=== PATIENT | male | born 1970 | race Caucasian/White ===

== ENCOUNTER 2025-01-04 13:47 | Outpatient (AMB) | payer OTHER, SELFPAY ==
--- NOTE | 2025-01-04 14:18 | AM.OFFWIN_ITS ---
Intake Vital Signs 01/04/25 14:19 Weight 185 lb BP 120/84 Blood Pressure Location Lt brachial Position Sitting Pulse 102 H Pulse Source Pulse Oximeter Pulse Oximetry (%) 97 Oxygen Delivery Method Room Air Intake Visit Reasons: ACCOUNT MANAGEMENT ASSISTANT Dark spot upper back, rt side Intake Note: Patient here for dark spot on back that he just noticed last saturday and has a hx of skin cancer. Patient Tobacco Use Status: Never used Tobacco Allergies No Known Allergies Allergy (Verified 01/04/25 14:19) Do you need a note to return to daycare/school/sports/work: No HPI HPI Comments History of Present Illness Details History of Present Illness - The patient is a 54-year-old male pres enting with a suspicious skin lesion on the back, which is new. 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 - Recently observed a darker spot on the back, raising concern due to the past history of skin cancer. - Plans to have it evaluated by a dermat ologist either at their standard upcomin g appointment or sooner if deemed necessary. - Currently transitioning to a new [facility] physician, Dr Kent, with an appointment set for February 16. Physical Exam General: Cooperative, healthy appearing, comfortable, no acute distress and well developed Orientation: Patient oriented x3 Limitations: No limitations Head: Normal to inspection Ears: Hearing grossly normal bilaterally Nose: Normal External nose present Face and sinus: Normal facial exam Eyes: Appearance normal, both eyes and all related structures Neck: Normal visual inspection and Yes full ROM Respiratory: Normal respiratory effort and able to speak in complete sentences. Skin: Irregular shaped area of dark brown and light brown on right sided mid back, it is flat, not bleeding. Neuro: Patient oriented x3 Extremities: Normal to inspection [employer] [facility] [facility] Social History Patient Tobacco Use Status: Never used Tobacco Review of Systems Const All systems reviewed & are unremarkable except as noted in HPI and below Physical Exam Vital Signs: Last Vital Signs Pulse 102 H 01/04/25 14:19 BP 120/84 01/04/25 14:19 Pulse Ox 97 01/04/25 14:19 Oxygen Delivery Method Room Air 01/04/25 14:19 Assessment & Plan Assessment & Plan (1) Skin lesion of back: Code(s): L98.9 - Disorder of the skin and subcutaneous tissue, unspecified Plan: The patient presented with a suspicious skin lesion on the back and has a history of basal cell carcinoma on the face. Due to its irregular shape and color variation, I recommended a dermatology consultation to ensure proper evaluation and management. I have placed a referral to Elana Anguiano, pt's preference and previous [facility]. Patient was informed and verbally consented to the use of an ambient scribe for clinic note documentation during this visit. Orders: Referrals Dermatology Referral L98.9 - Disorder of the skin and subcutaneous tissue, unspecified Coding Level of Care Code Est Pt Level 3 (63921) Diagnoses Skin lesion of back L98.9
[2025-01-04 14:19] VITALS: BP 120/84; PULSE 102; O2SAT 97
== END 2025-01-04 15:30 | disposition home or self-care (01) ==
PROVIDERS: PCP Internal Medicine; Visit Provider Physician Assistant
DX: L98.9 Disorder of the skin and subcutaneous tissue, unspecified (principal)

== ENCOUNTER → 2025-01-04 13:47 | Outpatient (BNVA) | payer OTHER, SELFPAY | PROVIDERS: PCP Internal Medicine; Visit Provider Physician Assistant | DX: L98.9 Disorder of the skin and subcutaneous tissue, unspecified (principal); Z85.828 Personal history of other malignant neoplasm of skin | CPT/HCPCS: 99212 ==

== ENCOUNTER 2025-02-16 14:15 | Outpatient (AMB) | payer OTHER, SELFPAY ==
--- NOTE | 2025-02-16 14:16 | MHC.PC.OV ---
Vital Signs 02/16/25 14:24 Height 5 ft 6.54 in Weight 182 lb 6 oz BMI 29.0 BP 116/84 Blood Pressure Location Rt brachial Position Sitting Respiration 16 Pulse 95 Pulse Source Pulse Oximeter Temp 97.9 F Temp Source Temporal Artery Scan Pulse Oximetry (%) 97 Oxygen Delivery Method Room Air Intake Visit Reasons: Establish Care - see comments Dental Ceramist Helper Required: No Accompanied by: Self / Same As Patient Allergies No Known Allergies Allergy (Verified 02/16/25 14:17) Tobacco use date assessed: 02/16/25 Dental Screening Dental Screen Date: 02/16/25 Did you have a dental visit in the last 12 months?: Yes Did you have a dental problem in the last 6 months where you did not have access to dental care?: No Was dental information given to patient?: Patient has dentist [facility] Medical History (Updated 02/16/25 @ 14:51 by Roberto Barreto MD) Melanoma Hyperlipidemia Family History (Updated 02/16/25 @ 14:31 by SMA Sabas) Father Alzheimer dementia Mother Brain aneurysm Social History (Updated 02/16/25 @ 14:32 by SMA Sabas) Housing: House Alcohol intake: current Alcohol intake frequency: holidays/special occasions only Patient Tobacco Use Status: Never used Tobacco service: No Current occupational status: employed Cognitive needs: No Hearing needs: No Vision needs: No Questionnaire PHQ-9 Over the last 2 weeks, how often have you been bothered by any of the following problems? 1. Little interest or pleasure in doing things: not at all 2. Feeling down, depressed, or hopeless: not at all 3. Trouble falling or staying asleep, or sleeping too much: not at all 4. Feeling tired or having little energy: not at all 5. Poor appetite or overeating: not at all 6. Feeling bad about yourself - or that you are a failure or have let yourself or your family down: not at all 7. Trouble concentrating on things, such as reading the newspaper or watching television: not at all 8. Moving or speaking so slowly that other people could have noticed. Or the opposite - being so fidgety or restless that you have been moving around a lot more than usual: not at all 9. Thoughts that you would be better off or of hurting yourself in some way: not at all Total score: 0 Source: Developed by Drs. Brayan Nielson, Deepthi Emerson, Aidan Gasca and colleagues, with an educational michel from [email or web address]. Thrive Questionnaire Date Thrive assessed: 02/16/25 I am a: Patient What is your living situation today?: I have a steady place to live Within the past 12 months, did the food you bought not last and you didn't have the money to get more?: Never true Within the past 12 months, did you worry whether your food would run out before you got money to buy more?: Never true Do you have trouble paying for medicines?: No Do you have trouble getting transportation to medical appointments?: No Do you have trouble paying your heating and electricity bill?: No Do you have trouble taking care of your child, family member or friend?: No Do you have trouble with day-to-day activities such as bathing, preparing meals, shopping, managing finances, etc.?: No Are you currently unemployed and looking for a job?: No Are you interested in more education?: No Please select the resources that you would like help with: None Currently or been in a relationship where the following occur: No concerns reported THRIVE Score: 0 AUDIT C Alcohol Use Questionnaire (AUDIT-C) 1. How often do you have a drink containing alcohol?: Monthly or less 2. How many drinks containing alcohol do you have on a typical day when you are drinking?: 1 or 2 3. How often do you have six or more drinks on one occasion?: Never Total Score: 1 RODRIGO-7 AMB Questionnaire RODRIGO-7 Date RODRIGO - 7 assessed: 02/16/25 Feeling nervous, anxious, or on edge: 0 = Not at all Not being able to stop or control worryin = Not at all Worrying too much about different things: 0 = Not at all Trouble relaxin = Not at all Being so restless that it is hard to sit still: 0 = Not at all Becoming easily annoyed or irritable: 0 = Not at all Feeling afraid as if something awful might happen: 0 = Not at all Total RODRIGO-7 score (0-4 normal; 5-9 mild; 10-14 moderate; 15-21 severe): 0 Source: Developed by Drs. Brayan Nielson, Deepthi Emerson, Aidan Gasca and colleagues, with an educational michel from [email or web address]. Physical exam (Primary Care) Vital Signs: Last Vital Signs Temp 97.9 F 02/16/25 14:24 Pulse 95 02/16/25 14:24 Resp 16 02/16/25 14:24 BP 116/84 02/16/25 14:24 Pulse Ox 97 02/16/25 14:24 Oxygen Delivery Method Room Air 02/16/25 14:24 BMI result Body Mass Index 29.0 Tobacco/Smoking Status: Tobacco use Status Tobacco use date assessed 02/16/25 02/16/25 14:20 Patient Tobacco Use Status Never used Tobacco 02/16/25 14:32 PHQ-9: PHQ-9 Score PHQ-9: Total score 0 02/16/25 14:32 Thrive Assessment: Date of Thrive Assessment Date Thrive assessed 02/16/25 02/16/25 14:20 Currently or been in a relationship where the following occur: No concerns reported Coding Level of Care Code New Pt Level 4 (32418) Complex EM visit Add On G2211 Diagnoses Hyperlipidemia E78.5 Melanoma C43.9 Assessment & Plan Assessment & Plan (1) Hyperlipidemia: Code(s): E78.5 - Hyperlipidemia, unspecified Category: Medical Plan: Fasting lipid panel and other bw ordered. (2) Melanoma: Code(s): C43.9 - Malignant melanoma of skin, unspecified Category: Medical Plan: Excised from the back, fortunately it was stage 0. Plan History of Present Illness - The patient is a 54-year-old male presenting with a wellness visit for routine exams and screenings. - Melanoma stage 0: The patient had a biopsy confirming melanoma stage 0 and is scheduled for further excision on the . - Arthritis: The patient experiences pain in his fingers, likely due to arthritis, which sometimes radiates upwards. He manages the pain with extra strength Tylenol when necessary but prefers to avoid medication. - Preventative care: The patient is due for a colonoscopy and has agreed to undergo the procedure. He will also have fasting blood work done at [facility] or the [facility] walk-in clinic. 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 Review of Systems - Musculoskeletal: Reports pain in fingers, likely due to arthritis, sometimes radiating upwards. Physical Exam General: Cooperative and healthy appearing Nutritional Appearance: Well nourished Orientation/consciousness: Patient oriented x3 Limitations: No limitations Head: Normal to inspection General: Appearance normal, both eyes and all related structures Neck: Normal visual inspection Chest: Normal palpation of entire chest wall Respiratory: N ormal respiratory effort Neurology: Patient oriented x3, reports occasional arthritis in fingers due to work in [employer]. Results - Labs: Fasting blood work to be conducted. - Tests and Diagnostics: Scheduled colonoscopy for screening purposes. Plan 1. Melanoma Stage 0 - Plan: The patient is scheduled for excision of the remaining melanoma on the . 2. Arthritis - Plan: The patient manages pain with extra strength Tylenol as needed and prefers to avoid regular medication use. 3. Preventative Care: Screening Colonoscopy - Plan: The patient will undergo a screening colonoscopy and fasting blood work. Discussion Notes I discussed with the patient the importance of completing the scheduled excision for melanoma stage 0 and the benefits of undergoing a screening colonoscopy. We also talked about managing arthritis symptoms with Tylenol as needed and avoiding unnecessary medication. The patient was advised to complete fasting blood work prior to the colonoscopy. Follow-up was scheduled for six months to reassess his health status and ensure compliance with preventative care measures. Patient Instructions - Complete fasting blood work at [facility] or [facility] walk-in clinic. - Undergo scheduled excision for melanoma on the . - Attend screening colonoscopy as planned. - Use extra strength Tylenol for arthritis pain as needed. Orders: Orders Basic Metabolic Panel Today E78.5 - Hyperlipidemia, unspecified Lipid Panel Today E78.5 - Hyperlipidemia, unspecified Liver Panel Today E78.5 - Hyperlipidemia, unspecified UA and rflx microscopic Today E78.5 - Hyperlipidemia, unspecified Complete Blood Count no Diff Today E78.5 - Hyperlipidemia, unspecified Thyroid Stimulating Hormone Today E78.5 - Hyperlipidemia, unspecified Prostate Specific Antigen Scr Today E78.5 - Hyperlipidemia, unspecified Referrals Gastroenterology Referral Z12.11 - Encounter for screening for malignant neoplasm of colon
[2025-02-16 14:24] VITALS: BP 116/84; PULSE 95; RESP 16; TEMP 36.6; O2SAT 97; BMI 29.0
== END 2025-02-16 14:52 | disposition home or self-care (01) ==
LOC: HO.HMCSH 14:15
PROVIDERS: PCP Internal Medicine; Visit Provider Internal Medicine
DX: E78.5 Hyperlipidemia, unspecified (principal); C43.9 Malignant melanoma of skin, unspecified

== ENCOUNTER → 2025-02-16 14:15 | Outpatient (BNVA) | payer OTHER, SELFPAY | PROVIDERS: PCP Internal Medicine; Visit Provider Internal Medicine | DX: M79.645 Pain in left finger(s) (principal); M79.644 Pain in right finger(s); C43.9 Malignant melanoma of skin, unspecified; E78.5 Hyperlipidemia, unspecified | CPT/HCPCS: 99202 ==

== ENCOUNTER 2025-05-07 07:29 | Outpatient (REF) | payer OTHER, SELFPAY ==
[2025-05-07 10:19] LABS: Hematocrit 46.7 % (42.0-52.0); Hemoglobin 16.2 g/dl (14.0-18.0); Mean Corpuscular HGB Conc 34.7 g/dl (31.0-36.0); Mean Corpuscular Hemoglobin 32.5 pg (27.0-33.0); Mean Corpuscular Volume 93.8 fL (80.0-98.0); NRBC Abs Auto 0.000 X10*3/uL (0.0-0.012); NRBC Pct Auto 0.0 /100WBC (0.0-0.2); Platelet Count 179 X10*3/uL (160-400); Red Blood Count 4.98 X10*6/uL (4.60-5.80); White Blood Count 6.6 X10*3/uL (4.8-10.8)
[2025-05-07 10:44] LABS: Alanine Aminotransferase 22 U/L (0-40); Albumin Level 4.5 g/dL (3.5-5.0); Alkaline Phosphatase 60 U/L (39-117); Anion Gap 13 (12-20); Aspartate Amino Transferase 27 U/L (5-37); Blood Urea Nitrogen 15 mg/dL (9-16); Calcium 8.7 mg/dL (8.4-10.2); Carbon Dioxide 23 mmol/L (22-29); Chloride 109 mmol/L (96-108); Cholesterol 193 mg/dL (<200); Estimated Glomerular Filt Rate > 60; HDL Cholesterol 41 mg/dL (>40); Potassium 4.1 mmol/L (3.3-5.1); Sodium 141 mmol/L (135-145); Total Protein 6.9 g/dL (6.5-8.0); Triglycerides 112 mg/dL (<150)
[2025-05-07 10:52] LABS: Appearance Urine Clear; Glucose Urine UA Negative (Negative); PH 6.5 (5.0-9.0); Specific Gravity - Urine 1.025 (1.005-1.025)
[2025-05-07 11:02] LABS: Thyroid Stimulating Hormone 1.45 uIU/mL (0.32-4.0)
== END 2025-05-07 07:30 | disposition home or self-care (01) ==
LOC: HO.10HDL 07:29
PROVIDERS: Visit Provider Internal Medicine
DX: E78.5 Hyperlipidemia, unspecified (principal)
CPT/HCPCS: 36415; 80048; 80061; 80076; 81003; 84153; 84443; 85027

== ENCOUNTER 2025-06-24 07:57 | Outpatient (AMB) | payer OTHER, SELFPAY ==
--- NOTE | 2025-06-24 08:02 | MHC.OFFVIS ---
Vital Signs 06/24/25 08:03 Height 5 ft 6 in Weight 180 lb BMI 29.0 Intake Visit Reasons: Colonoscopy Screening Intake Note: Patient new consult for pre Colonoscopy screening Patient cc: Allergies No Known Allergies Allergy (Verified 02/16/25 14:17) Medication List - Last Reconciled 06/24/25 by Day Ty CNP No Known Home Meds HPI HPI Colonoscopy Screening: Details: Patient is a 54-year-old male with PMH of hyperlipidemia. Referred by PCP for pre colonoscopy screening. Will be [facility] 1st colonoscopy, with no prior stool based CRC screening. He denies any gastrointestinal complaints, including changes in bowel habits, constipation or diarrhea. He reports stable appetite and stable weight, as noted in the 180 lb range. Review of recent labs from April shows no anemia or abnormal renal or hepatic function. There are no personal concerns requiring additional GI workup at this time. Non-GI comorbid history includes resected basal cell carcinoma of the face approximately 24 years ago and stage 0 melanoma of the back treated within the past year. He denies any personal or family history of GI malignancies. Patient denies: fever/chills, n/v, appetite changes, pyrosis, regurgitation,dysphasia, unintentional wt loss, ab pain or melena/hematochezia. Social hx: -ETOH use Occasional use, primarily on weekends (e.g., football games). -denies recreational drug use -non-smoker - family hx as below -denies significant cardiopulmonary history -tolerated anesthesia in the past without difficulty. [facility] Medical History (Updated 06/24/25 @ 08:08 by Day Ty CNP) Colon cancer screening Melanoma Hyperlipidemia Family History Father Alzheimer dementia Mother Brain aneurysm Social History Housing: House Alcohol intake: current Alcohol intake frequency: holidays/special occasions only Patient Tobacco Use Status: Never used Tobacco service: No Current occupational status: employed Cognitive needs: No Hearing needs: No Vision needs: No Review of Systems Const Reports as per HPI ENT Reports as per HPI Card Reports as per HPI Resp Reports as per HPI GI Reports as per HPI Reports as per HPI Physical Exam Vital Signs: BMI result Body Mass Index 29.0 Const General: healthy appearing, no acute distress and well developed Nutritional Appearance: average body habitus Orientation/consciousness: patient oriented x3 HEENT Head: Yes normal to inspection, Yes normocephalic and Yes atraumatic Face and sinus: Yes normal facial exam Eyes General: appearance normal, both eyes and all related structures Neck Neck: Yes normal visual inspection Resp Effort & Inspection: normal respiratory effort, able to speak in complete sentences, no tracheal deviation and symmetric chest movement Cardio Jugular venous distension: no JVD GI Inspection: Yes distended Neuro General: patient oriented x3 Gait exam (Neuro): Normal gait present Psych Appearance: grossly normal Mental Status: mental status grossly normal Speech and movement: Normal speech and movement present Affect: normal affect Attitude: cooperative Thought process: Normal thought process present Thought content: Normal thought content present Insight: Good insight present (Psych) Judgement: Good judgement present (Psych) Assessment & Plan Assessment & Plan (1) Colon cancer screening: Code(s): Z12.11 - Encounter for screening for malignant neoplasm of colon Category: Medical Plan: Patient at age-appropriate interval for initial CRC screening with no GI symptoms or high-risk family history; prior non-melanoma skin cancers do not alter GI screening indications. Additional Testing: None indicated prior to colonoscopy; recent labs within normal limits. Medication Management: Prescribed prep including Miralax split and bisacodyl tablets as per protocol; instructions provided for OTC purchase if needed. Lifestyle Recommendations: Clear liquid diet day before procedure; strict avoidance of red, blue, or purple liquids; NPO four hours before procedure. Review and adherence to prep instructions emphasized, including no solids on day prior and day of the procedure. Follow-Up: Colonoscopy will be scheduled; patient to follow up as needed post-procedure or per findings. No interval follow-up necessary prior unless new symptoms arise. Plan Follow-up after colonoscopy as warranted or sooner if needed Time: I spent a total of 15 minutes on the date of encounter which includes: Preparing to see the patient (reviewed previous documentation, test results and medical history) Performing a medically appropriate exam and/or evaluation Ordering medications, tests, and procedures Documenting clinical information in the health record Orders: Referrals GI Procedure Notification Z12.11 - Encounter for screening for malignant neoplasm of colon Medications: New bisacodyl Take per colonoscopy instructions 20 mg (4 x 5 mg) PO ONCE 4 tabs 0RF polyethylene glycol 3350 (Miralax) per colonoscopy prep instructions 238 grams PO ONCE 238 grams 0RF Coding Level of Care Code New Pt New Pt Level 2 (32281) Patient Type New Diagnoses Colon cancer screening Z12.11
[2025-06-24 08:03] VITALS: BMI 29.0
== END 2025-06-24 08:18 | disposition home or self-care (01) ==
LOC: HO.HGI 07:58
PROVIDERS: PCP Internal Medicine; Visit Provider Nurse Practitioner Family
DX: Z01.818 Encounter for other preprocedural examination (principal); Z12.11 Encounter for screening for malignant neoplasm of colon
CPT/HCPCS: 99202

== ENCOUNTER → 2025-06-24 07:57 | Outpatient (BNVA) | payer OTHER, SELFPAY | PROVIDERS: PCP Internal Medicine; Visit Provider Nurse Practitioner Family | DX: Z12.11 Encounter for screening for malignant neoplasm of colon (principal) | CPT/HCPCS: 99202 ==